=== PATIENT | female | born 1945 | race Caucasian/White ===

== ENCOUNTER 2019-06-14 05:53 | Inpatient (IN) | payer BC, MEDICARE ==
[2019-06-03 11:26] LABS: BASOPHILS % (AUTO) 0.4 % (0-1); EOSINOPHILS # (AUTO) 0.2 X10'3 (0-0.9); LYMPHOCYTES # (AUTO) 1.3 X10'3 (1.1-4.8); MEAN CORPUSCULAR HEMOGLOBIN 31.3 PG (27.0-31.0); MEAN CORPUSCULAR HGB CONC 33.9 g/dL (33.0-36.5); MEAN CORPUSCULAR VOLUME 92.2 FL (78-98); MEAN PLATELET VOLUME 7.7 FL (7.4-10.4); MONOCYTES # (AUTO) 0.5 X10'3 (0-0.9); MONOCYTES % (AUTO) 7.4 % (2-12); NEUTROPHILS # (AUTO) 5.3 X10'3 (1.8-7.7); NEUTROPHILS % (AUTO) 72.2 % (42-75); PRE OP HEMATOCRIT 43.7 % (35.0-45.0); PRE OP HEMOGLOBIN 14.8 g/dL (12.0-16.0); PRE OP PLATELET COUNT 265 X10'3 (140-440); RED BLOOD COUNT 4.74 X10'6 (4.20-5.60); RED CELL DISTRIBUTION WIDTH 13.2 % (11.5-14.5)
[2019-06-03 12:04] LABS: ALBUMIN 3.4 G/DL (3.4-5.0); ALBUMIN/GLOBULIN RATIO 0.9 (1.1-1.5); ALKALINE PHOSPHATASE 67 IU/L (46-116); BLOOD UREA NITROGEN 36 MG/DL (7-18); BUN/CREATININE RATIO 31.9 (6.6-38.0); CALCIUM 9.7 MG/DL (8.5-10.1); CHLORIDE 107 MMOL/L (99-107); CREATININE 1.13 MG/DL (0.40-0.90); PRE OP ALT 44 U/L (30-65); PRE OP ANION GAP 7 (8-16); PRE OP AST 24 U/L (10-37); PRE OP BILIRUB, TOTAL 0.4 MG/DL (0.0-1.0); PRE OP GLUCOSE 94 MG/DL (70-104); PRE OP POTASSIUM 4.3 MMOL/L (3.4-5.1); PRE OP SODIUM 142 MMOL/L (135-145); TOTAL CARBON DIOXIDE 27.8 MMOL/L (24-32); TOTAL PROTEIN 7.1 G/DL (6.4-8.2); eGFR 47 ML/MIN
[2019-06-03 12:22] LABS: CLARITY,URINE SLIGHTLY CLOUDY (Clear); COLOR,URINE YELLOW (Yellow); GLUCOSE, URINE NEGATIVE (Neg); KETONES,URINE NEGATIVE (Neg); LEUKOCYTE ESTERASE ,URINE NEGATIVE (Neg); NITRITES, URINE NEGATIVE (Neg); OCCULT BLOOD,URINE NEGATIVE (Neg); PH,URINE 5.5 (4.8-8.0); PROTEIN,URINE NEGATIVE (Neg); UROBILINOGEN,URINE 0.2 E.U/dL (0.2-1.0)
[2019-06-03 12:30] LABS: UA COLLECTION TYPE CLN CATCH MIDSTREAM
[2019-06-03 12:31] LABS: BACTERIA,URINE 1+ /HPF (Neg); HYALINE CASTS >30 /LPF (NEGATIVE); SQUAMOUS EPITHELIAL CELL,UR MANY /LPF (FEW)
[2019-06-03 12:32] LABS: RBC,URINE 0-2 /HPF (0-2); WBC,URINE 0-4 /HPF (0-4)
[~2019-06-14] VITALS: Ht 157.5 cm; Wt 80.6 kg
[2019-06-14] VITALS (16 sets, daily range): BP systolic 111–134; BP diastolic 56–74
[~2019-06-14 05:53] MED LIST: ACET-812 PO; ASPI81TA47 PO; CELE200C PO; DOCUMENT DATE & TIME OF BETA-BLOCKER PO ONE; FURO40TA4 PO; GABA600T13 PO; LEVO-144 PO; LISI2.5T2 PO; PROP60CA37 PO; acetaminophen 325mg tablet PO ONE; cefazolin/dext.iso 2gm/100 ML IV ONE; celeCOXIB 100mg capsule PO ONE; famotidine 20mg tablet PO ONE; gabapentin 300mg capsule PO ONE; oxyCODONE SR 10mg (sust. release) tab PO ONE; ringers solution, lacted 1,000 ML IV SCH; tranexamic acid inj. 1,500 MG in normal saline 100ml IV soln 100 ML IV ONE
[2019-06-14] MEDS ORDERED: ROPIVAcaine 0.5% (5mg/ml) 30ml vial ONE ×2 (07:06→07:54)
[2019-06-14] MEDS ORDERED: fentaNYL/PF 50MCG/1 ML 2ML syringe ONE (07:18)
[2019-06-14] MEDS ORDERED: MIDAZolam 5mg/5ml vial ONE (07:18)
[2019-06-14] MEDS ORDERED: propofol inj 20 ML IV ONE (07:54)
[2019-06-14] MEDS ORDERED: LIDOcaine 1%/PF 5ML 10 MG/ML VIAL ONE (07:54)
[2019-06-14] MEDS ORDERED: ceFAZolin 1000mg inj ONE (09:27)
--- NOTE | 2019-06-14 09:56 | NUR ---
ARRIVED IN PACU VIA BED FROM OR WITH DR SAHNI IN ATTENDANCE. REPORT RECEIVED. VS STABLE. PT SLEEPY BUT AROUSES EASILY.
[2019-06-14] MEDS ORDERED: oxyCODONE/APAP 10/325mg tablet PO PRN (10:10)
[2019-06-14] MEDS ORDERED: acetaminophen 325mg tablet PO PRN (10:10)
[2019-06-14] MEDS ORDERED: diphenhydrAMINE 25mg capsule PO PRN ×2 (10:10)
[2019-06-14] MEDS ORDERED: bisacodyl 10mg suppository rectal RC PRN (10:10)
[2019-06-14] MEDS ORDERED: magnesium hydroxide 30ml (MOM) UD suspension PO PRN (10:10)
--- NOTE | 2019-06-14 10:15 | NUR ---
received report from recovery
--- NOTE | 2019-06-14 10:16 | NUR ---
BP 119/70
[2019-06-14] MEDS ORDERED: morphine 4 MG/ML inj SYRINge IV PRN (10:25)
[2019-06-14] MEDS ORDERED: ondansetron/PF 4mg/2ml inj IV PRN (10:25)
[2019-06-14] MEDS ORDERED: HYDROmorphone inj. 0.5 MG/0.5 ML DISP.SYRIN IV PRN (10:25)
[2019-06-14] MEDS ORDERED: ringers solution, lacted 1,000 ML IV SCH (10:25)
--- NOTE | 2019-06-14 10:56 | NUR ---
PT C/O NAUSEA, MINIMAL ACHE IN R KNEE, PT STATES ITS TOLERABLE, ZOFRAN GIVEN. VS STABLE. TO ORTHO WITH 2 ORDERLIES. REPORT CALLED TO JOSIAS 40MINS AGO AND AN UPDATE GIVEN TO WILL NOW, AT TRANSFER TIME
--- NOTE | 2019-06-14 11:05 | NUR ---
received pt. to room 4013B. alert and oriented to the room. Daughter came to the room about 5 min. after she got here.
--- NOTE | 2019-06-14 11:10 | NUR ---
pt is awake in ortho bed
[2019-06-14] MEDS: ondansetron/PF 4mg/2ml inj IV PRN ×2 (12:21→19:09)
[2019-06-14] MEDS: HYDROmorphone 1 mg/ml syringe IV PRN ×2 (12:22→17:37)
[2019-06-14] MEDS: gabapentin 300mg capsule PO SCH ×2 (12:40→22:04)
[2019-06-14] MEDS: potassium cl 20mEq in 1/2 NS 1,000 ML IV SCH ×3 (15:53→23:08)
[2019-06-14] MEDS: ceFAZolin 1GM/D5W- ADD-VANTAGE 50 ML IV SCH ×2 (15:54→23:06)
--- NOTE | 2019-06-14 18:31 | NUR ---
gave report to leonora nj
[2019-06-14] MEDS: ascorbic acid 500mg tablet PO SCH (20:00)
[2019-06-14] MEDS ORDERED: scopolamine 1.5mg patch.TD72 TD ONE (20:15)
[2019-06-14] MEDS: sennosides 8.6mg tablet PO SCH (21:00)
[2019-06-15 02:00] VITALS: BP 101/49
[2019-06-15 06:00] VITALS: BP 109/53
[2019-06-15 06:07] LABS: BASOPHILS % (AUTO) 0.4 % (0-1); EOSINOPHILS % (AUTO) 0.5 % (0-6); HEMATOCRIT 35.8 % (35.0-45.0); HEMOGLOBIN 12.2 g/dl (12.0-16.0); LYMPHOCYTES # (AUTO) 0.8 X10'3 (1.1-4.8); LYMPHOCYTES % (AUTO) 11.3 % (21-51); MEAN CORPUSCULAR HEMOGLOBIN 31.6 PG (27.0-31.0); MEAN CORPUSCULAR VOLUME 92.9 FL (78-98); MEAN PLATELET VOLUME 8.4 FL (7.4-10.4); MONOCYTES # (AUTO) 0.7 X10'3 (0-0.9); MONOCYTES % (AUTO) 9.6 % (2-12); NEUTROPHILS # (AUTO) 5.5 X10'3 (1.8-7.7); NEUTROPHILS % (AUTO) 78.2 % (42-75); PLATELET COUNT 198 X10'3 (140-440); RED BLOOD COUNT 3.85 X10'6 (4.20-5.60); RED CELL DISTRIBUTION WIDTH 13.3 % (11.5-14.5)
--- NOTE | 2019-06-15 06:15 | NUR ---
Problems reprioritized. Patient report given, questions answered & plan of care reviewed with SABA SHAVER.
[2019-06-15 06:16] LABS: ANION GAP 6 (8-16); CHLORIDE 112 MMOL/L (99-107); POTASSIUM 4.4 MMOL/L (3.5-5.1); SODIUM 144 MMOL/L (135-145); TOTAL CARBON DIOXIDE 25.7 MMOL/L (24-32)
--- NOTE | 2019-06-15 06:30 | NUR ---
Patient in room ORTHO 4013. I have received report from SABA Izaguirre and had the opportunity to ask questions and assume patient care.
[2019-06-15] MEDS ORDERED: levoTHYROXINE 25mcg tablet PO SCH (08:00)
[2019-06-15] MEDS: potassium cl 20mEq in 1/2 NS 1,000 ML IV SCH ×2 (08:49→17:23)
[2019-06-15] MEDS: gabapentin 300mg capsule PO SCH ×3 (08:59→21:01)
[2019-06-15] MEDS: multivitamins, therapeutics tablet PO SCH (08:59)
[2019-06-15] MEDS: furosemide 40mg tablet PO SCH (08:59)
[2019-06-15] MEDS: ascorbic acid 500mg tablet PO SCH ×2 (09:00→21:02)
[2019-06-15] MEDS: lisinopril 2.5mg tablet PO SCH (09:00)
[2019-06-15] MEDS: levoTHYROXINE 25mcg tablet PO SCH (09:17)
[2019-06-15] MEDS: ondansetron/PF 4mg/2ml inj IV PRN (09:23)
[2019-06-15 10:00] VITALS: BP 118/69
[2019-06-15] MEDS ORDERED: warfarin 3mg tablet PO ONE (10:00)
[2019-06-15] MEDS: propranolol LA 60 MG cap.SA.24H PO SCH (10:15)
[2019-06-15] MEDS: oxyCODONE/APAP 10/325mg tablet PO PRN ×2 (13:27→17:26)
--- NOTE | 2019-06-15 15:55 | NUR ---
Total joint replacement: Pt seen at bedside provided with written and verbal protein education and RD contact information. Pt currently on regular diet with documented 25% PO intake not meeting nutrient needs. Pt reports low PO intake r/t post-op nausea and denies ONS or additional protein at this time. Will continue to follow. Addendum: 06/15/19 at [address] Amended: Links added.
[2019-06-15 18:00] VITALS: BP 133/69
--- NOTE | 2019-06-15 18:44 | NUR ---
Problems reprioritized. Patient report given, questions answered & plan of care reviewed with SABA Izaguirre.
--- NOTE | 2019-06-15 18:53 | NUR ---
Patient in room ORTHO 4013. I have received report from leonora Sullivan and had the opportunity to ask questions and assume patient care.
[2019-06-15] MEDS: sennosides 8.6mg tablet PO SCH (21:01)
[2019-06-15] MEDS: celeCOXIB 100mg capsule PO SCH (21:02)
[2019-06-15 22:00] VITALS: BP 116/66
[2019-06-16] MEDS: potassium cl 20mEq in 1/2 NS 1,000 ML IV SCH (02:09)
[2019-06-16] MEDS: oxyCODONE/APAP 10/325mg tablet PO PRN ×2 (05:02→09:25)
--- NOTE | 2019-06-16 05:04 | NUR ---
pt was found pulling down knee wrap and removed alll the dressing.
[2019-06-16 06:00] VITALS: BP 115/68
[2019-06-16 06:11] LABS: BASOPHILS % (AUTO) 0.5 % (0-1); EOSINOPHILS # (AUTO) 0.2 X10'3 (0-0.9); EOSINOPHILS % (AUTO) 2.4 % (0-6); HEMATOCRIT 34.1 % (35.0-45.0); HEMOGLOBIN 11.8 g/dl (12.0-16.0); LYMPHOCYTES # (AUTO) 1.2 X10'3 (1.1-4.8); LYMPHOCYTES % (AUTO) 16.4 % (21-51); MEAN CORPUSCULAR HEMOGLOBIN 31.9 PG (27.0-31.0); MEAN CORPUSCULAR HGB CONC 34.8 g/dL (33.0-36.5); MEAN CORPUSCULAR VOLUME 91.8 FL (78-98); MEAN PLATELET VOLUME 8.4 FL (7.4-10.4); MONOCYTES # (AUTO) 0.8 X10'3 (0-0.9); MONOCYTES % (AUTO) 10.7 % (2-12); NEUTROPHILS # (AUTO) 5.3 X10'3 (1.8-7.7); PLATELET COUNT 209 X10'3 (140-440); RED BLOOD COUNT 3.71 X10'6 (4.20-5.60); RED CELL DISTRIBUTION WIDTH 13.4 % (11.5-14.5); WHITE BLOOD COUNT 7.5 X10'3 (4.5-11.0)
--- NOTE | 2019-06-16 06:44 | NUR ---
Problems reprioritized. Patient report given, questions answered & plan of care reviewed with leonora Wong.
[2019-06-16] MEDS ORDERED: levoTHYROXINE 25mcg tablet PO SCH (07:30)
[2019-06-16] MEDS: levoTHYROXINE 25mcg tablet PO SCH (09:22)
[2019-06-16] MEDS: lisinopril 2.5mg tablet PO SCH (09:22)
[2019-06-16] MEDS: celeCOXIB 100mg capsule PO SCH ×2 (09:22→20:22)
[2019-06-16] MEDS: propranolol LA 60 MG cap.SA.24H PO SCH (09:22)
[2019-06-16] MEDS: furosemide 40mg tablet PO SCH (09:22)
[2019-06-16] MEDS: ascorbic acid 500mg tablet PO SCH ×2 (09:23→20:21)
[2019-06-16] MEDS: gabapentin 300mg capsule PO SCH ×3 (09:23→20:23)
[2019-06-16] MEDS: multivitamins, therapeutics tablet PO SCH (09:23)
[2019-06-16 10:00] VITALS: BP 114/46
[2019-06-16] MEDS ORDERED: warfarin 1mg tablet PO ONE (10:00)
[2019-06-16] MEDS: acetaminophen 325mg tablet PO PRN ×2 (13:55→20:29)
[2019-06-16 18:00] VITALS: BP 108/73
--- NOTE | 2019-06-16 18:32 | NUR ---
Patient in room ORTHO 4013. I have received report from Stephanie WALTER and had the opportunity to ask questions and assume patient care.
[2019-06-16] MEDS: sennosides 8.6mg tablet PO SCH (20:22)
[2019-06-16 22:00] VITALS: BP 118/58
[2019-06-17 06:00] VITALS: BP 125/68
--- NOTE | 2019-06-17 06:10 | NUR ---
Patient in room ORTHO 4013. I have received report from Abhilash WALTER and had the opportunity to ask questions and assume patient care.
[2019-06-17 06:19] LABS: BASOPHILS % (AUTO) 0.7 % (0-1); EOSINOPHILS # (AUTO) 0.2 X10'3 (0-0.9); EOSINOPHILS % (AUTO) 4.1 % (0-6); HEMOGLOBIN 12.4 g/dl (12.0-16.0); LYMPHOCYTES % (AUTO) 17.4 % (21-51); MEAN CORPUSCULAR HEMOGLOBIN 31.5 PG (27.0-31.0); MEAN CORPUSCULAR HGB CONC 34.3 g/dL (33.0-36.5); MEAN CORPUSCULAR VOLUME 91.7 FL (78-98); MEAN PLATELET VOLUME 8.3 FL (7.4-10.4); MONOCYTES # (AUTO) 0.6 X10'3 (0-0.9); MONOCYTES % (AUTO) 10.8 % (2-12); NEUTROPHILS # (AUTO) 3.8 X10'3 (1.8-7.7); PLATELET COUNT 215 X10'3 (140-440); RED BLOOD COUNT 3.93 X10'6 (4.20-5.60); RED CELL DISTRIBUTION WIDTH 13.4 % (11.5-14.5); WHITE BLOOD COUNT 5.7 X10'3 (4.5-11.0)
--- NOTE | 2019-06-17 06:22 | NUR ---
Problems reprioritized. Patient report given, questions answered & plan of care reviewed with Jennifer WALTER.
[2019-06-17] MEDS ORDERED: ASPI-10 (07:50)
[2019-06-17] MEDS: gabapentin 300mg capsule PO SCH ×2 (07:52→14:51)
[2019-06-17] MEDS: propranolol LA 60 MG cap.SA.24H PO SCH (07:52)
[2019-06-17] MEDS: furosemide 40mg tablet PO SCH (07:52)
[2019-06-17] MEDS: levoTHYROXINE 25mcg tablet PO SCH (07:52)
[2019-06-17] MEDS: ascorbic acid 500mg tablet PO SCH (07:52)
[2019-06-17] MEDS: lisinopril 2.5mg tablet PO SCH (07:53)
[2019-06-17] MEDS: celeCOXIB 100mg capsule PO SCH (07:53)
[2019-06-17] MEDS: multivitamins, therapeutics tablet PO SCH (07:53)
[2019-06-17] MEDS: acetaminophen 325mg tablet PO PRN (08:01)
[2019-06-17 10:00] VITALS: BP 115/61
[2019-06-17] MEDS ORDERED: warfarin 2.5mg tablet PO ONE (10:00)
--- NOTE | 2019-06-17 16:28 | NUR ---
Patient stable for discharge home today. All discharge instructions given to patient and questions answered.
== END 2019-06-17 15:30 | disposition home or self-care (01) | DRG 470 ==
LOC: PAS IN 05:53 → EDSTATUS 07:30 → ORTHO 4S 11:05
PROVIDERS: ADMIT Specialist; ATTEND Specialist
PROC: 0SRC0J9 Replacement of Right Knee Joint with Synthetic Substitute, Cemented, Open Approach (ICD-10-PCS; principal; 2019-06-16)
PROC: 3E0T3BZ Introduction of Anesthetic Agent into Peripheral Nerves and Plexi, Percutaneous Approach (ICD-10-PCS; 2019-06-16)
DX: M17.11 Unilateral primary osteoarthritis, right knee (principal); G25.0 Essential tremor; E03.9 Hypothyroidism, unspecified; I10 Essential (primary) hypertension; Z60.2 Problems related to living alone; R42 Dizziness and giddiness; M79.7 Fibromyalgia; M21.061 Valgus deformity, not elsewhere classified, right knee; E66.8 Other obesity; Z68.32 Body mass index [BMI] 32.0-32.9, adult
CPT/HCPCS: Z7506; Z7508; 36415; 73560; 80051; 80053; 81001; 82948; 84443; 85025; 85610; 85730; 87081; 97110; 97116; 97162; 97530; A6449; A6454; A7000; C1713; C1758; C1776; G0378; J0690; J1170; J2250; J2405; J2704; J2795; J3010; J3480; J7030; J7120